=== PATIENT | male | born 1985 | race Caucasian/White ===

== ENCOUNTER 2023-09-02 09:45 | Emergency (ER) | payer BC, OTHER ==
[2023-09-02] MEDS ORDERED: Sodium Chloride 0.9% 1,000 ML IV ONE (10:16)
[2023-09-02] MEDS ORDERED: Dexamethasone 10 MG/ML SDV IVPUSH ONE (10:16)
[2023-09-02] MEDS ORDERED: Ondansetron 4 MG/2 ML SDV IVPUSH ONE (10:17)
[2023-09-02] MEDS ORDERED: Clindamycin Phosphate in D5W 600 MG in Premix Bag 1 BAG IV ONE ×2 (10:17)
[2023-09-02] MEDS ORDERED: Morphine 10 MG/ML SDV IVPUSH ONE (10:17)
[2023-09-02] MEDS ORDERED: Morphine 4 MG/ML Syringe IVPUSH ONE ×2 (10:38→12:55)
[2023-09-02] MEDS ORDERED: Morphine 4 MG/ML Syringe ONE (10:39)
[2023-09-02 10:54] LABS: HEMATOCRIT 41.8 % (42.0-52.0); HEMOGLOBIN 15.1 g/dL (14.0-18.0); MEAN CORPUSCULAR HEMOGLOBIN 31.9 pg (28.0-32.0); MEAN CORPUSCULAR HGB CONC 36.1 g/dL (32.0-36.0); MEAN CORPUSCULAR VOLUME 88.2 fL (83.0-99.0); MEAN PLATELET VOLUME 9.7 fL (9.4-12.4); PLATELET COUNT,PLT 268 K/uL (150-400); RED BLOOD CELL COUNT 4.74 M/uL (4.52-5.90); WHITE BLOOD CELL COUNT,WBC 21.95 K/uL (3.9-11.3)
[2023-09-02 11:02] LABS: CORONAVIRUS COVID-19 NAA NEGATIVE (NEGATIVE); INFLUENZA A NAA NEGATIVE (NEGATIVE); INFLUENZA B NAA NEGATIVE (NEGATIVE)
[2023-09-02 11:12] LABS: LYMPHOCYTES ABSOLUTE MAN 3.73 K/uL (1.00-4.80); LYMPHOCYTES PERCENT MAN 17 % (24-44); MONOCYTES ABSOLUTE MAN 1.54 K/uL (0.00-0.80); MONOCYTES PERCENT MAN 7 % (0-8); SEG NEUTROPHILS ABSOLUTE MAN 16.68 K/uL (1.80-7.70); SEG NEUTROPHILS PERCENT MAN 76 % (41-71)
[2023-09-02 11:20] LABS: A/G RATIO 1.2 (0.9-1.6); ALBUMIN 4.3 g/dL (3.4-5.0); BILIRUBIN TOTAL 0.7 mg/dL (0.2-1.0); CALCIUM 9.4 mg/dL (8.5-10.1); CARBON DIOXIDE,CO2 24.5 mmol/L (21.0-32.0); EST CRCL DRUG DOSING (CG) 98.8 mL/min; PROTEIN TOTAL,TP 7.8 g/dL (6.4-8.2)
[2023-09-02] MEDS ORDERED: Iopamidol 755 MG/ML 500 ML Multipack Bottle IVPUSH STA (11:50)
[2023-09-02] MEDS ORDERED: Lidocaine 2% 5 ML SDV ONE (12:56)
[2023-09-02 15:01] VITALS: BP 122/80; PULSE 69
== END 2023-09-02 14:58 | disposition home or self-care (01) ==
LOC: MW.ED 09:45
DX: J36 Peritonsillar abscess (principal); Z88.1 Allergy status to other antibiotic agents
CPT/HCPCS: 0240U; 36415; 70491; 80053; 85025; 87651; 96365; 96375; 96376; 99283; J0736; J1100; J2270; J2405; J7030; Q9967; 99284; J3490